=== PATIENT | female | born 1995 | race Caucasian/White ===

== ENCOUNTER 2019-01-12 14:58 | Inpatient (IN) | payer OTHER ==
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
[2019-01-12] MEDS ORDERED: IBUPROFEN 400 MG TABLET (FP) PO PRN (17:10)
[2019-01-12] MEDS ORDERED: BISMUTH SUBSALICYLATE 524 MG/30 ML UD PO PRN (17:10)
[2019-01-12] MEDS ORDERED: MENTHOL/PHENOL 1 EACH UD MM PRN (17:10)
[2019-01-12] MEDS ORDERED: NICOTINE POLACRILEX 2 MG GUM BUC PRN (17:10)
[2019-01-12] MEDS ORDERED: MAGNESIUM CITRATE 300 ML BOTTLE PO PRN (17:10)
[2019-01-12] MEDS ORDERED: ACETAMINOPHEN 325 MG TABLET (FP) PO PRN ×2 (17:10)
[2019-01-12] MEDS ORDERED: METHOCARBAMOL 500 MG TABLET PO PRN (17:10)
[2019-01-12] MEDS ORDERED: MAG HYDROX/AL HYDROX/SIMETH 30 ML UNIT-DOSE CUP PO PRN (17:10)
[2019-01-12] MEDS ORDERED: MAGNESIUM HYDROX 2400MG/30ML ORAL SUSPENSION 30 ML CUP PO PRN (17:10)
[2019-01-12] MEDS ORDERED: guaiFENesin 200 MG/10 ML 10 ML UNIT-DOSE CUPS PO PRN (17:17)
[2019-01-12] MEDS ORDERED: diazePAM 5 MG TABLET PO ONE (18:00)
[2019-01-12] MEDS: diazePAM 5 MG TABLET PO SCH (22:19)
[2019-01-12] MEDS: THIAMINE HCL 100 MG TABLET (FP) PO SCH (22:19)
[2019-01-12] MEDS: MELATONIN 5 MG TABLETS PO PRN (22:20)
[2019-01-13] MEDS ORDERED: METHADONE HCL 40 MG DISPERSABLE TABLET ONE (04:40)
[2019-01-13] MEDS ORDERED: METHADONE HCL 10 MG TABLET ONE (04:40)
[2019-01-13] MEDS ORDERED: METHADONE HCL 5 MG TABLET ONE (04:40)
[2019-01-13] MEDS: diazePAM 5 MG TABLET PO SCH ×3 (05:21→22:04)
[2019-01-13] MEDS: METHADONE 80 MG, METHADONE 30 MG, METHADONE 5 MG PO SCH (06:56)
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
[2019-01-13] MEDS: diazePAM 5 MG TABLET PO PRN ×2 (09:35→17:27)
[2019-01-13] MEDS: NICOTINE 21 MG/24 HOURS TOPICAL PATCH TD SCH (09:35)
[2019-01-13] MEDS: PRENATAL VITAMINS W/ FOLIC ACID TABLET (FP) PO SCH (09:35)
[2019-01-13] MEDS ORDERED: METHADONE HCL 40 MG DISPERSABLE TABLET PO SCH (10:00)
[2019-01-13 10:05] LABS: HEMATOCRIT 36.4 % (32.4-45.2); HEMOGLOBIN 11.9 GM/dL (10.7-15.3); MCHC 32.7 g/dl (32.0-36.0); MEAN CELL VOLUME 85.5 fl (80-96); MEAN PLT VOLUME 9.7 fl (7.5-11.1); PLATELET COUNT 270 K/MM3 (134-434); RBC 4.25 M/mm3 (3.60-5.2); RDW 15.9 % (11.6-15.6); WHITE BLOOD COUNT 8.9 K/mm3 (4.0-10.0)
[2019-01-13 10:26] LABS: ALBUMIN 3.2 g/dl (3.4-5.0); ALK PHOS 59 U/L (45-117); ANION GAP 4 MMOL/L (8-16); BILIRUBIN,TOTAL 0.2 mg/dL (0.2-1); BLOOD UREA NITROGEN 12 mg/dL (7-18); CALCIUM 8.7 mg/dL (8.5-10.1); CHLORIDE 106 mmol/L (98-107); CO2 30 mmol/L (21-32); CREATININE 0.8 mg/dL (0.55-1.3); GLUCOSE,RANDOM 96 mg/dL (74-106); POTASSIUM 4.1 mmol/L (3.5-5.1); SGOT/AST 12 U/L (15-37); SGPT/ALT 19 U/L (13-61); SODIUM 140 mmol/L (136-145); TOT PROT 6.5 g/dl (6.4-8.2)
[2019-01-13] MEDS: FLUoxetine HCL 20 MG CAPSULE (FP) PO SCH (11:29)
[2019-01-13] MEDS: busPIRone HCL 10 MG TABLET (FP) PO SCH ×2 (11:29→22:04)
[2019-01-13 11:34] LABS: PH,URINE 7.5 (5.0-8.0); URINE APPEARANCE CLEAR; URINE BILIRUBIN NEGATIVE (NEGATIVE); URINE COLOR YELLOW; URINE GLUCOSE (UA) NEGATIVE (NEGATIVE); URINE KETONE NEGATIVE (NEGATIVE); URINE LEUK ESTERASE NEGATIVE (NEGATIVE); URINE NITRITE NEGATIVE (NEGATIVE); URINE PROTEIN NEGATIVE (NEGATIVE); URINE UROBILINOGEN 0.2 mg/dL (0.2-1.0)
--- NOTE | 2019-01-13 14:46 | EKG ---
Test Reason : Blood Pressure : / mmHG Vent. Rate : 054 BPM Atrial Rate : 054 BPM P-R Int : 172 ms QRS Dur : 094 ms QT Int : 466 ms P-R-T Axes : 039 033 037 degrees QTc Int : 441 ms SINUS BRADYCARDIA WITH SINUS ARRHYTHMIA INCOMPLETE RIGHT BUNDLE BRANCH BLOCK BORDERLINE ECG NO PREVIOUS ECGS AVAILABLE Confirmed by Jan Ornelas ([id number]) on 01/13/2019 2:46:03 PM Referred By: SHINE BARAJAS Confirmed By:Jan Ornelas
--- NOTE | 2019-01-13 15:57 | PN ---
S CIWA - CIWA Score Nausea/Vomitin-No Nausea/No Vomiting Muscle Tremors: 3 Anxiety: 3 Agitation: 0-Normal Activity Paroxysmal Sweats: 3 Orientation: 0-Oriented Tacttile Disturbances: 2-Mild Itch/Numbness/Burn Auditory Disturbances: 2-Mild Harshness/Frighten Visual Disturbances: 0-None Headache: 3-Moderate CIWA-Ar Total Score: 16 BHS Progress Note (SOAP) Subjective: Interrupted Sleep, Sweating, Tremors, Constipation, Fatigue, Body Aches, H/A. Objective: PATIENT A & O X 3, OBSERVED AMBULATING ON UNIT. IN NO ACUTE DISTRESS. 01/13/19 15:57 Vital Signs Temperature 97.5 F L 01/13/19 13:35 Pulse Rate 62 01/13/19 13:35 Respiratory Rate 18 01/13/19 13:35 Blood Pressure 122/73 01/13/19 13:35 O2 Sat by Pulse Oximetry (%) Laboratory Tests 01/12/19 01/13/19 01/13/19 18:40 07:00 07:00 WBC 8.9 RBC 4.25 Hgb 11.9 Hct 36.4 MCV 85.5 MCH 28.0 MCHC 32.7 RDW 15.9 H Plt Count 270 MPV 9.7 Sodium 140 Potassium 4.1 Chloride 106 Carbon Dioxide 30 Anion Gap 4 L BUN 12 Creatinine 0.8 Creat Clearance w eGFR 88.12 Random Glucose 96 Calcium 8.7 Total Bilirubin 0.2 AST 12 L ALT 19 Alkaline Phosphatase 59 Total Protein 6.5 Albumin 3.2 L Urine Color Yellow Urine Appearance Clear Urine pH 7.5 D Ur Specific [place] 1.006 L Urine Protein Negative Urine Glucose (UA) Negative Urine Ketones Negative Urine Blood Negative Urine Nitrite Negative Urine Bilirubin Negative Urine Urobilinogen 0.2 Ur Leukocyte Esterase Negative LABS NOTED. RPR RESULT PENDING. 01/13/19 15:58 Assessment: 01/13/19 15:57 WITHDRAWAL SYMPTOMS. Plan: CONTINUE DETOX. INCREASE DAILY PO FLUID INTAKE. PRN MOM FOR CONSTIPATION.
[2019-01-13] MEDS: THIAMINE HCL 100 MG TABLET (FP) PO SCH (22:04)
[2019-01-14] MEDS ORDERED: METHADONE HCL 10 MG TABLET ONE (04:55)
[2019-01-14] MEDS ORDERED: METHADONE HCL 40 MG DISPERSABLE TABLET ONE (04:55)
[2019-01-14] MEDS ORDERED: METHADONE HCL 5 MG TABLET ONE (04:56)
[2019-01-14] MEDS: METHADONE 80 MG, METHADONE 30 MG, METHADONE 5 MG PO SCH (07:53)
[2019-01-14] MEDS: diazePAM 5 MG TABLET PO PRN ×3 (07:54→17:42)
[2019-01-14] MEDS: busPIRone HCL 10 MG TABLET (FP) PO SCH ×2 (10:43→22:11)
[2019-01-14] MEDS: FLUoxetine HCL 20 MG CAPSULE (FP) PO SCH (10:43)
[2019-01-14] MEDS: PRENATAL VITAMINS W/ FOLIC ACID TABLET (FP) PO SCH (10:43)
[2019-01-14] MEDS: NICOTINE 21 MG/24 HOURS TOPICAL PATCH TD SCH (10:43)
[2019-01-14] MEDS: diazePAM 5 MG TABLET PO SCH ×2 (10:43→22:11)
--- NOTE | 2019-01-14 14:17 | PN ---
S CIWA - CIWA Score Nausea/Vomitin-Mild Nausea/No Vomiting Muscle Tremors: 1-None Visible, but [place] Anxiety: 1-Mildly Anxious Agitation: 1-Slight > Activity Paroxysmal Sweats: 1-Minimal Palms Moist Orientation: 0-Oriented Tacttile Disturbances: 0-None Auditory Disturbances: 0-None Visual Disturbances: 0-None Headache: 0-None Present CIWA-Ar Total Score: 5 BHS Progress Note (SOAP) Subjective: pt doing well, on benzo detox protocol O: Vital Signs - 24 hr 01/13/19 01/13/19 01/14/19 18:07 21:40 00:30 Temperature 98.2 F 98.5 F Pulse Rate 70 62 Respiratory 16 16 18 Rate Blood Pressure 117/71 128/76 01/14/19 01/14/19 01/14/19 03:30 06:16 06:30 Temperature 97.0 F L Pulse Rate 56 L Respiratory 18 18 18 Rate Blood Pressure 101/51 L 01/14/19 09:36 Temperature 97.8 F Pulse Rate 76 Respiratory 18 Rate Blood Pressure 117/85 a/p: Benzo detox protocol: d/c planned for tomorrow to rehab
[2019-01-14] MEDS: MELATONIN 5 MG TABLETS PO PRN (22:11)
[2019-01-14] MEDS: THIAMINE HCL 100 MG TABLET (FP) PO SCH (22:11)
[2019-01-15] MEDS ORDERED: METHADONE HCL 40 MG DISPERSABLE TABLET ONE (04:23)
[2019-01-15] MEDS ORDERED: METHADONE HCL 10 MG TABLET ONE (04:23)
[2019-01-15] MEDS ORDERED: METHADONE HCL 5 MG TABLET ONE (04:24)
[2019-01-15] MEDS ORDERED: diazePAM 5 MG TABLET PO SCH (06:00)
[2019-01-15] MEDS: METHADONE 80 MG, METHADONE 30 MG, METHADONE 5 MG PO SCH (07:55)
[2019-01-15 09:18] VITALS: BP 110/73; PULSE 77; TEMP 98.8
--- NOTE | 2019-01-15 20:20 | DS ---
[facility] Detox Discharge Summary Admission Date: 01/12/19 Discharge Date: 01/15/19 - History Present History: Cocaine Dependence, Opioid Dependence, Sedative Dependence, MMTP Additional Comments: PATIENT GOING TO [facility] ([place], [place]) FOR AFTERCARE. PATIENT WAS DISCHARGED FROM DETOX UNIT IN STABLE MEDICAL CONDITION. Pertinent Past History: History of Seizures, Depression, M.M.T.P., Nicotine Dependence, History of Bradycardia, Bruise. - Physical Exam Results Vital Signs: Vital Signs Temperature 98.8 F 01/15/19 09:17 Pulse Rate 77 01/15/19 09:17 Respiratory Rate 18 01/15/19 09:17 Blood Pressure 110/73 01/15/19 09:17 O2 Sat by Pulse Oximetry (%) Pertinent Admission Physical Exam Findings: WITHDRAWAL SYMPTOMS. Laboratory Tests 01/12/19 01/13/19 01/13/19 18:40 07:00 07:00 WBC 8.9 RBC 4.25 Hgb 11.9 Hct 36.4 MCV 85.5 MCH 28.0 MCHC 32.7 RDW 15.9 H Plt Count 270 MPV 9.7 Sodium 140 Potassium 4.1 Chloride 106 Carbon Dioxide 30 Anion Gap 4 L BUN 12 Creatinine 0.8 Creat Clearance w eGFR 88.12 Random Glucose 96 Calcium 8.7 Total Bilirubin 0.2 AST 12 L ALT 19 Alkaline Phosphatase 59 Total Protein 6.5 Albumin 3.2 L Urine Color Yellow Urine Appearance Clear Urine pH 7.5 D Ur Specific [place] 1.006 L Urine Protein Negative Urine Glucose (UA) Negative Urine Ketones Negative Urine Blood Negative Urine Nitrite Negative Urine Bilirubin Negative Urine Urobilinogen 0.2 Ur Leukocyte Esterase Negative RPR Titer 01/13/19 07:00 WBC RBC Hgb Hct MCV MCH MCHC RDW Plt Count MPV Sodium Potassium Chloride Carbon Dioxide Anion Gap BUN Creatinine Creat Clearance w eGFR Random Glucose Calcium Total Bilirubin AST ALT Alkaline Phosphatase Total Protein Albumin Urine Color Urine Appearance Urine pH Ur Specific [place] Urine Protein Urine Glucose (UA) Urine Ketones Urine Blood Urine Nitrite Urine Bilirubin Urine Urobilinogen Ur Leukocyte Esterase RPR Titer Nonreactive LABS NOTED. - Treatment Hospital Course: Detox Protocol Followed, Detoxed Safely, Responded well, Discharged Condition Good, Rehab Referral Accepted Patient has Accepted a Rehab Referral to: [facility] ([place], [place]). - Medication Discharge Medications: Ambulatory Orders Methadone [Dolophine -] 115 mg PO DAILY 01/12/19 Buspirone HCl [Buspar -] 10 mg PO DAILY 01/13/19 Fluoxetine HCl [Prozac] 20 mg PO DAILY 01/13/19 - Diagnosis (1) Sedative, hypnotic or anxiolytic dependence with withdrawal, uncomplicated Status: Acute (2) Bradycardia Status: Chronic (3) Cocaine dependence, uncomplicated Status: Chronic (4) Bruise Status: Chronic (5) Methadone maintenance therapy patient Status: Chronic (6) Nicotine dependence Status: Chronic Qualifiers: Nicotine product type: cigarettes Substance use status: uncomplicated Qualified Code(s): F17.210 - Nicotine dependence, cigarettes, uncomplicated (7) Obesity (BMI 30-39.9) Status: Chronic (8) Substance-induced anxiety disorder Status: Acute (9) Anxiety Status: Chronic - AMA Did Patient Leave Against Medical Advice: No
== END 2019-01-15 10:00 | disposition home or self-care (01) | DRG 773 ==
LOC: YASAS 14:58 → Y3N 17:41
PROVIDERS: ADMIT Surgery; ATTEND Surgery
PROC: HZ2ZZZZ Detoxification Services for Substance Abuse Treatment (ICD-10-PCS; principal; 2019-01-12)
DX: F13.230 Sedative, hypnotic or anxiolytic dependence with withdrawal, uncomplicated (principal); F11.20 Opioid dependence, uncomplicated; F14.20 Cocaine dependence, uncomplicated; F17.210 Nicotine dependence, cigarettes, uncomplicated; F19.280 Other psychoactive substance dependence with psychoactive substance-induced anxiety disorder; F41.9 Anxiety disorder, unspecified; R00.1 Bradycardia, unspecified; E66.9 Obesity, unspecified; Z68.37 Body mass index [BMI] 37.0-37.9, adult; Z86.69 Personal history of other diseases of the nervous system and sense organs; Z91.5 Personal history of self-harm
CPT/HCPCS: 36415; 80053; 81003; 85027; 86593; 90853; 93005; 93010

== ENCOUNTER 2019-05-19 09:36 | Inpatient (IN) | payer OTHER ==
[2019-05-19 10:39] VITALS: BMI 38.9
--- NOTE | 2019-05-19 12:27 | HP ---
COWS - Scale Resting Pulse: 2= [place] 101-120 Sweatin= Chills/Flushing Restless Observation: 1= Difficult to Sit Still Pupil Size: 1= Pupils >than Normal Bone or Joint Aches: 2= Severe Diffuse Aches Runny Nose/ Eye Tearin= Runny Nose/Eyes GI Upset > 30mins: 1= Stomach Cramp Tremor Observation: 1= Tremor [place], Not Seen Yawning Observation: 1= 1-2x During Session Anxiety or Irritability: 2=Irritable/Anxious Goose Flesh Skin: 0=Smooth Skin COWS Score: 14 CIWA Score Nausea/Vomitin-Mild Nausea/No Vomiting Muscle Tremors: 3 Anxiety: 3 Agitation: 3 Paroxysmal Sweats: No Perspiration Orientation: 0-Oriented Tacttile Disturbances: 0-None Auditory Disturbances: 0-None Visual Disturbances: 0-None Headache: 2-Mild CIWA-Ar Total Score: 12 - Admission Criteria OASAS Guidelines: Admission for Medically Managed Detox: Requires at least one of the followin. CIWA greater than 12 2. Seizures within the past 24 hours 3. Delirium tremens within the past 24 hours 4. Hallucinations within the past 24 hours 5. Acute intervention needed for co occurring medical disorder 6. Acute intervention needed for co occurring psychiatric disorder 7. Severe withdrawal that cannot be handled at a lower level of care (continued vomiting, continued diarrhea, abnormal vital signs) requiring intravenous medication and/or fluids 8. Admission ROS [facility] Chief Complaint: here for heroin and benzo detox Allergies/Adverse Reactions: Allergies Allergy/AdvReac Type Severity Reaction Status Date / Time No Known Allergies Allergy Verified 05/19/19 10:35 History of Present Illness: 23 yo with anxiety, on no meds, here after using heroin and xanax illicitly. Pt is in our methadone program- but missed 7days, last methadone dose on 05/11/19, on 70mg, pt states that she wants to taper off methadone because she does not like to go to a methadone program every day. She would consider restarting Suboxone after she is tapered off methadone. Would like to go to custodial rehab. 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, is homeless - stays at different friend's houses Does not have a PCP, no medical problems, on no meds Heroin 9-10 bags/day, does not have a narcan kit, no h/o OD Xanax- 6mg/day, getting this illicitly cocaine- occasional MJ: occasional DUR- no recent controlled substances - Ebola screening Have you traveled outside of the country in the last 21 days: No Have you had contact with anyone from an Ebola affected area: No Do you have a fever: No Patient History - Patient Medical History Hx Anemia: No Hx Asthma: No Hx Chronic Obstructive Pulmonary Disease (COPD): No Hx Cancer: No Hx Cardiac Disorders: No Hx Congestive Heart Failure: No Hx Hypertension: No Hx Hypercholesterolemia: No Hx Pacemaker: No HX Cerebrovascular Accident: No Hx Seizures: Yes (withdrawal of xanax) Hx Dementia: No Hx Diabetes: No Hx Gastrointestinal Disorders: No Hx Liver Disease: No Hx Genitourinary Disorders: No Hx Sexually Transmitted Disorders: No Hx Renal Disease (ESRD): No Hx Thyroid Disease: No Hx Human Immunodeficiency Virus (HIV): No (last 11/27) Hx Hepatitis C: No Hx Depression: Yes Hx Suicide Attempt: Yes Hx Bipolar Disorder: No Hx Schizophrenia: No - Patient Surgical History Past Surgical History: Yes Hx Neurologic Surgery: No Hx Cataract Extraction: No Hx Cardiac Surgery: No Hx Lung Surgery: No Hx Breast Surgery: No Hx Breast Biopsy: No Hx Abdominal Surgery: No Hx Appendectomy: No Hx Cholecystectomy: No Hx Genitourinary Surgery: No Hx Section: No Hx Orthopedic Surgery: No Other Surgical History: TONSILLECOTMY DURING CHILDHOOD Anesthesia Reaction: No - PPD History Date: 06/16/15 Results: 0mm - Reproductive History Last Menstrual Period: 11/23/16 - Smoking Cessation Smoking history: Current every day smoker Have you smoked in the past 12 months: No Aproximately how many cigarettes per day: 10 Cigars Per Day: 0 Hx Chewing Tobacco Use: No Initiated information on smoking cessation: Yes 'Breaking Loose' booklet given: 05/19/19 - Substances abused Alprazolam (Xanax) Substance route: Oral Frequency: Daily Amount used: 4 mg Age of first use: 13 Date of last use: 05/18/19 Cocaine Substance route: Inhalation Frequency: 1-3 times last 30 days Amount used: 2 gm Age of first use: 20 Date of last use: 01/11/19 Heroin Substance route: Inhalation Frequency: Daily Amount used: 8BAGS Age of first use: 15 Date of last use: 05/18/19 Family Disease History - Family Disease History Family Disease History: Other: Mother (ETOH AND COCCAINE DEPENDENT) Admission Physical Exam [facility] - Vital Signs Vital Signs: Vital Signs - 24 hr 05/19/19 05/19/19 10:31 11:03 Temperature 99.2 F 99.2 F Pulse Rate 92 H 92 H Respiratory 18 18 Rate Blood Pressure 115/77 115/77 Cleared for Admission [facility] - Detox or Rehab [facility] Level of Care: Medically Managed Detox Regimen/Protocol: Methadone/Valium Breathalyzer - Breathalyzer Breathalyzer: 0 POC Urine test - Test device test lot number: [id number] Expiration date: 06/13/20 - Control test control: Yes Urine Drug Screen - Test Device Lot number: [id number] Expiration date: 02/10/21 - Control Is test valid?: Yes - Results Drug screen NEGATIVE: No Urine drug screen results: THC-Marijuana, FEN-Fentanyl, MOP-Opiates, OXY- Oxycodone, MTD-Methadone, BZO-Benzodiazepines Inpatient Rehab Admission - Rehab Decision to Admit Inpatient rehab admission?: No
[2019-05-19] MEDS ORDERED: METHOCARBAMOL 500 MG TABLET PO PRN (12:51)
[2019-05-19] MEDS ORDERED: IBUPROFEN 400 MG TABLET (FP) PO PRN (12:51)
[2019-05-19] MEDS ORDERED: cloNIDine HCL 0.1 MG TABLET PO PRN (12:51)
[2019-05-19] MEDS ORDERED: ONDANSETRON *ODT* 4 MG TABLET SL PRN (12:51)
[2019-05-19] MEDS ORDERED: MAGNESIUM CITRATE 300 ML BOTTLE PO PRN (12:51)
[2019-05-19] MEDS ORDERED: MAG HYDROX/AL HYDROX/SIMETH 30 ML UNIT-DOSE CUP PO PRN (12:51)
[2019-05-19] MEDS ORDERED: MAGNESIUM HYDROX 2400MG/30ML ORAL SUSPENSION 30 ML CUP PO PRN (12:51)
[2019-05-19] MEDS ORDERED: MENTHOL/PHENOL 1 EACH UD MM PRN (12:51)
[2019-05-19] MEDS ORDERED: NALOXONE HCL 0.4 MG/ML VIAL IM PRN (12:51)
[2019-05-19] MEDS ORDERED: BISMUTH SUBSALICYLATE 524 MG/30 ML UD PO PRN (12:51)
[2019-05-19] MEDS ORDERED: ACETAMINOPHEN 325 MG TABLET (FP) PO PRN ×2 (12:51)
[2019-05-19] MEDS ORDERED: diazePAM 5 MG TABLET PO ONE (14:30)
[2019-05-19] MEDS: diazePAM 5 MG TABLET PO SCH ×2 (14:35→22:10)
[2019-05-19] MEDS ORDERED: METHADONE HCL 10 MG TABLET (FOR DETOX USE ONLY) PO ONE (15:00)
[2019-05-19 15:43] LABS: HEMATOCRIT 38.1 % (32.4-45.2); HEMOGLOBIN 12.5 GM/dL (10.7-15.3); MCH 27.4 pg (25.7-33.7); MCHC 32.9 g/dl (32.0-36.0); MEAN CELL VOLUME 83.5 fl (80-96); MEAN PLT VOLUME 9.6 fl (7.5-11.1); PLATELET COUNT 300 K/MM3 (134-434); RBC 4.57 M/mm3 (3.60-5.2); RDW 15.6 % (11.6-15.6)
[2019-05-19 16:13] LABS: ALBUMIN 3.7 g/dl (3.4-5.0); BILIRUBIN,TOTAL 0.3 mg/dL (0.2-1); BLOOD UREA NITROGEN 10.7 mg/dL (7-18); CALCIUM 8.9 mg/dL (8.5-10.1); CREATININE 0.7 mg/dL (0.55-1.3); POTASSIUM 4.5 mmol/L (3.5-5.1); TOT PROT 7.1 g/dl (6.4-8.2)
[2019-05-19] MEDS: diazePAM 5 MG TABLET PO PRN (18:18)
[2019-05-19] MEDS: NICOTINE POLACRILEX 4 MG GUM BUC PRN (20:11)
[2019-05-19] MEDS: MELATONIN 5 MG TABLETS PO PRN (22:10)
[2019-05-19] MEDS: hydrOXYzine PAMOATE 25 MG CAPSULE (FP) PO PRN (22:10)
[2019-05-19] MEDS: THIAMINE HCL 100 MG TABLET (FP) PO SCH (22:10)
[2019-05-20] MEDS: diazePAM 5 MG TABLET PO SCH ×3 (06:24→22:11)
[2019-05-20] MEDS ORDERED: METHADONE HCL 10 MG TABLET (FOR DETOX USE ONLY) ONE (08:17)
[2019-05-20] MEDS ORDERED: METHADONE HCL 5 MG TABLET (FOR DETOX USE ONLY) ONE (08:17)
[2019-05-20] MEDS ORDERED: METHADONE (DETOX) 20 MG, METHADONE (DETOX) 5 MG PO ONE (10:00)
[2019-05-20] MEDS: NICOTINE 14 MG/24 HOURS TOPICAL PATCH TD SCH (10:25)
[2019-05-20] MEDS: PRENATAL VITAMINS W/ FOLIC ACID TABLET (FP) PO SCH (10:25)
[2019-05-20] MEDS: diazePAM 5 MG TABLET PO PRN ×2 (10:28→17:36)
[2019-05-20] MEDS: NICOTINE POLACRILEX 4 MG GUM BUC PRN ×3 (11:23→23:09)
--- NOTE | 2019-05-20 12:21 | PN ---
[facility] Progress Note Note: Today, pt states she would like to go back on MAT methadone. At intake pt had requested to be tapered off methadone to be able to start Suboxone. Pt had missed 7 days of methadone dosing at [facility] methadone program (and had been using heroin). As the pt is requesting reinstatement we will titrate her methadone dose to the last dose at the program- 70mg. [facility] MAT program made aware of this and pt can f /u with the program at discharge from inpt detox.
[2019-05-20] MEDS ORDERED: METHADONE HCL 5 MG TABLET PO ONE (12:25)
--- NOTE | 2019-05-20 14:05 | PN ---
[facility] CIWA - CIWA Score Nausea/Vomitin-Mild Nausea/No Vomiting Muscle Tremors: 3 Anxiety: 1-Mildly Anxious Agitation: 2 Paroxysmal Sweats: 1-Minimal Palms Moist Orientation: 0-Oriented Tacttile Disturbances: 0-None Auditory Disturbances: 0-None Visual Disturbances: 0-None Headache: 0-None Present CIWA-Ar Total Score: 8 S Progress Note (SOAP) Subjective: received methadone 40 mg po today feeling better continue methadone increasing to maintenance dose less tremor mild body ache Objective: 05/20/19 14:03 Vital Signs Temperature 97.1 F L 05/20/19 14:02 Pulse Rate 56 L 05/20/19 14:02 Respiratory Rate 18 05/20/19 14:02 Blood Pressure 119/78 05/20/19 14:02 O2 Sat by Pulse Oximetry (%) Laboratory Last Values WBC 10.0 K/mm3 (4.0-10.0) 05/19/19 13:30 RBC 4.57 M/mm3 (3.60-5.2) 05/19/19 13:30 Hgb 12.5 GM/dL (10.7-15.3) 05/19/19 13:30 Hct 38.1 % (32.4-45.2) 05/19/19 13:30 MCV 83.5 fl (80-96) 05/19/19 13:30 MCH 27.4 pg (25.7-33.7) 05/19/19 13:30 MCHC 32.9 g/dl (32.0-36.0) 05/19/19 13:30 RDW 15.6 % (11.6-15.6) 05/19/19 13:30 Plt Count 300 K/MM3 (134-434) 05/19/19 13:30 MPV 9.6 fl (7.5-11.1) 05/19/19 13:30 Sodium 139 mmol/L (136-145) 05/19/19 13:30 Potassium 4.5 mmol/L (3.5-5.1) 05/19/19 13:30 Chloride 105 mmol/L (98-107) 05/19/19 13:30 Carbon Dioxide 29 mmol/L (21-32) 05/19/19 13:30 Anion Gap 5 MMOL/L (8-16) L 05/19/19 13:30 BUN 10.7 mg/dL (7-18) 05/19/19 13:30 Creatinine 0.7 mg/dL (0.55-1.3) 05/19/19 13:30 Est GFR (CKD-EPI)AfAm 140.55 05/19/19 13:30 Est GFR (CKD-EPI)NonAf 121.27 05/19/19 13:30 Random Glucose 75 mg/dL (74-106) 05/19/19 13:30 Calcium 8.9 mg/dL (8.5-10.1) 05/19/19 13:30 Total Bilirubin 0.3 mg/dL (0.2-1) 05/19/19 13:30 AST 27 U/L (15-37) 05/19/19 13:30 ALT 32 U/L (13-61) 05/19/19 13:30 Alkaline Phosphatase 67 U/L (45-117) 05/19/19 13:30 Total Protein 7.1 g/dl (6.4-8.2) 05/19/19 13:30 Albumin 3.7 g/dl (3.4-5.0) 05/19/19 13:30 RPR Titer Nonreactive (NONREACTIVE) 05/19/19 13:30 lab noted Assessment: 05/20/19 14:03 alcohol withdrawal sx methadone maintenance dosing Plan: continue alcohol detox methadone 40 mg po
[2019-05-20] MEDS: THIAMINE HCL 100 MG TABLET (FP) PO SCH (22:11)
[2019-05-20] MEDS: MELATONIN 5 MG TABLETS PO PRN (22:12)
[2019-05-21] MEDS ORDERED: METHADONE HCL 40 MG DISPERSABLE TABLET ONE (05:47)
[2019-05-21] MEDS ORDERED: METHADONE HCL 10 MG TABLET ONE (05:47)
[2019-05-21] MEDS ORDERED: METHADONE HCL 10 MG TABLET PO ONE (06:00)
[2019-05-21] MEDS ORDERED: METHADONE 40 MG, METHADONE 10 MG PO ONE (06:00)
[2019-05-21] MEDS: diazePAM 5 MG TABLET PO SCH ×2 (06:29→17:00)
[2019-05-21] MEDS: NICOTINE POLACRILEX 4 MG GUM BUC PRN ×3 (09:18→22:10)
[2019-05-21] MEDS ORDERED: METHADONE HCL 10 MG TABLET (FOR DETOX USE ONLY) PO ONE (10:00)
[2019-05-21] MEDS: diazePAM 5 MG TABLET PO PRN ×2 (10:35→19:05)
[2019-05-21] MEDS: PRENATAL VITAMINS W/ FOLIC ACID TABLET (FP) PO SCH (10:35)
[2019-05-21] MEDS: NICOTINE 14 MG/24 HOURS TOPICAL PATCH TD SCH (10:35)
--- NOTE | 2019-05-21 15:36 | PN ---
[facility] CIWA - CIWA Score Nausea/Vomitin-No Nausea/No Vomiting Muscle Tremors: 3 Anxiety: 2 Agitation: 2 Paroxysmal Sweats: No Perspiration Orientation: 0-Oriented Tacttile Disturbances: 0-None Auditory Disturbances: 0-None Visual Disturbances: 0-None Headache: 0-None Present CIWA-Ar Total Score: 7 S Progress Note (SOAP) Subjective: 23 years old female admitted on 05/19/19 for alcohol withdrawal sx doing well with methadone maintenance process ambulating on hallway discuss medication assisted treatment program with staff less tremor mild body ache Objective: 05/21/19 15:42 Vital Signs Temperature 97.5 F L 05/21/19 13:39 Pulse Rate 64 05/21/19 13:39 Respiratory Rate 16 05/21/19 13:39 Blood Pressure 103/68 05/21/19 13:39 O2 Sat by Pulse Oximetry (%) Laboratory Last Values WBC 10.0 K/mm3 (4.0-10.0) 05/19/19 13:30 RBC 4.57 M/mm3 (3.60-5.2) 05/19/19 13:30 Hgb 12.5 GM/dL (10.7-15.3) 05/19/19 13:30 Hct 38.1 % (32.4-45.2) 05/19/19 13:30 MCV 83.5 fl (80-96) 05/19/19 13:30 MCH 27.4 pg (25.7-33.7) 05/19/19 13:30 MCHC 32.9 g/dl (32.0-36.0) 05/19/19 13:30 RDW 15.6 % (11.6-15.6) 05/19/19 13:30 Plt Count 300 K/MM3 (134-434) 05/19/19 13:30 MPV 9.6 fl (7.5-11.1) 05/19/19 13:30 Sodium 139 mmol/L (136-145) 05/19/19 13:30 Potassium 4.5 mmol/L (3.5-5.1) 05/19/19 13:30 Chloride 105 mmol/L (98-107) 05/19/19 13:30 Carbon Dioxide 29 mmol/L (21-32) 05/19/19 13:30 Anion Gap 5 MMOL/L (8-16) L 05/19/19 13:30 BUN 10.7 mg/dL (7-18) 05/19/19 13:30 Creatinine 0.7 mg/dL (0.55-1.3) 05/19/19 13:30 Est GFR (CKD-EPI)AfAm 140.55 05/19/19 13:30 Est GFR (CKD-EPI)NonAf 121.27 05/19/19 13:30 Random Glucose 75 mg/dL (74-106) 05/19/19 13:30 Calcium 8.9 mg/dL (8.5-10.1) 05/19/19 13:30 Total Bilirubin 0.3 mg/dL (0.2-1) 05/19/19 13:30 AST 27 U/L (15-37) 05/19/19 13:30 ALT 32 U/L (13-61) 05/19/19 13:30 Alkaline Phosphatase 67 U/L (45-117) 05/19/19 13:30 Total Protein 7.1 g/dl (6.4-8.2) 05/19/19 13:30 Albumin 3.7 g/dl (3.4-5.0) 05/19/19 13:30 RPR Titer Nonreactive (NONREACTIVE) 05/19/19 13:30 lab noted Assessment: 05/21/19 15:42 alcohol withdrawal sx Plan: continue alcohol detox
[2019-05-21] MEDS: THIAMINE HCL 100 MG TABLET (FP) PO SCH (22:10)
[2019-05-21] MEDS: MELATONIN 5 MG TABLETS PO PRN (22:10)
[2019-05-22] MEDS ORDERED: METHADONE HCL 40 MG DISPERSABLE TABLET ONE (04:48)
[2019-05-22] MEDS ORDERED: METHADONE HCL 10 MG TABLET ONE (04:48)
[2019-05-22] MEDS ORDERED: METHADONE 40 MG, METHADONE 20 MG PO ONE (06:00)
[2019-05-22] MEDS ORDERED: METHADONE HCL 10 MG TABLET PO ONE (06:00)
[2019-05-22] MEDS ORDERED: diazePAM 5 MG TABLET PO ONE ×2 (06:00→17:36)
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
[2019-05-22] MEDS: PRENATAL VITAMINS W/ FOLIC ACID TABLET (FP) PO SCH (09:31)
[2019-05-22] MEDS: hydrOXYzine PAMOATE 25 MG CAPSULE (FP) PO PRN ×2 (09:31→22:22)
[2019-05-22] MEDS: NICOTINE 14 MG/24 HOURS TOPICAL PATCH TD SCH (09:32)
[2019-05-22] MEDS: NICOTINE POLACRILEX 4 MG GUM BUC PRN (09:33)
[2019-05-22] MEDS ORDERED: METHADONE (DETOX) 10 MG, METHADONE (DETOX) 5 MG PO ONE (10:00)
--- NOTE | 2019-05-22 12:09 | PN ---
S CIWA - CIWA Score Nausea/Vomitin-Mild Nausea/No Vomiting Muscle Tremors: 3 Anxiety: 1-Mildly Anxious Agitation: 3 Paroxysmal Sweats: No Perspiration Orientation: 0-Oriented Tacttile Disturbances: 0-None Auditory Disturbances: 0-None Visual Disturbances: 0-None Headache: 0-None Present CIWA-Ar Total Score: 8 BHS COWS - Scale Resting Pulse: 1= MA 81-100 Sweatin= Chills/Flushing Restless Observation: 1= Difficult to Sit Still Pupil Size: 0= Normal to Room Light Bone or Joint Aches: 1= Mild Discomfort Runny Nose/ Eye Tearin= None GI Upset > 30mins: 1= Stomach Cramp Tremor Observation of Outstretched Hands: 1= Tremor [place], Not Seen Yawning Observation: 0= None Anxiety or Irritability: 1=Feels Anxious/Irritable Goose Flesh Skin: 0=Smooth Skin COWS Score: 7 S Progress Note (SOAP) Subjective: Patient is complaining of withdrawals still for alcohol and opioids. She feels very uncomfortable. Objective: 05/22/19 12:07 Opiate and Alcohol Withdrawals Vitals: 105/70 P:85/min R:16/min T:96.5 Laboratory 05/19/19 05/19/19 05/19/19 13:30 13:30 13:30 WBC 10.0 K/mm3 K/mm3 (4.0-10.0) RBC 4.57 M/mm3 M/mm3 (3.60-5.2) Hgb 12.5 GM/dL GM/dL (10.7-15.3) Hct 38.1 % % (32.4-45.2) MCV 83.5 fl fl (80-96) MCH 27.4 pg pg (25.7-33.7) MCHC 32.9 g/dl g/dl (32.0-36.0) RDW 15.6 % % (11.6-15.6) Plt Count 300 K/MM3 K/MM3 (134-434) MPV 9.6 fl fl (7.5-11.1) Sodium 139 mmol/L mmol/L (136-145) Potassium 4.5 mmol/L mmol/L (3.5-5.1) Chloride 105 mmol/L mmol/L (98-107) Carbon Dioxide 29 mmol/L mmol/L (21-32) Anion Gap 5 MMOL/L L MMOL/L (8-16) BUN 10.7 mg/dL mg/dL (7-18) Creatinine 0.7 mg/dL mg/dL (0.55-1.3) Est GFR (CKD-EPI)AfAm 140.55 Est GFR (CKD-EPI)NonAf 121.27 Random Glucose 75 mg/dL mg/dL (74-106) Calcium 8.9 mg/dL mg/dL (8.5-10.1) Total Bilirubin 0.3 mg/dL mg/dL (0.2-1) AST 27 U/L U/L (15-37) ALT 32 U/L U/L (13-61) Alkaline Phosphatase 67 U/L U/L (45-117) Total Protein 7.1 g/dl g/dl (6.4-8.2) Albumin 3.7 g/dl g/dl (3.4-5.0) RPR Titer Nonreactive (NONREACTIVE) 05/22/19 12:08 Assessment: 05/22/19 12:10 Alcohol and Opiate Withdrawal Plan: Alcohol and Opiate Withdrawals: Continue Ativan Protocol. Patient advised to be patient and that she will get her medication so amelliorate her withdrawal symptoms. She is sill on first full day of protocol. Encourage PO Fluids intake. Dr. Cassidy
[2019-05-22] MEDS: diazePAM 5 MG TABLET PO PRN (12:36)
--- NOTE | 2019-05-22 17:48 | PN ---
S Progress Note Note: Pt states she is having severe anxiety and is in withdrawal from benzo- rec'd valium 5mg this afternoon as end of taper. Will give valium 5mg stat now. Pt will get methadone 70mg tomorrow. Pt can go to methadone program for Saturday dose if pt is discharged tomorrow
[2019-05-22] MEDS ORDERED: MELATONIN 5 MG TABLETS PO PRN (22:00)
[2019-05-22] MEDS: THIAMINE HCL 100 MG TABLET (FP) PO SCH (22:23)
[2019-05-23] MEDS ORDERED: METHADONE HCL 10 MG TABLET ONE (04:43)
[2019-05-23] MEDS ORDERED: METHADONE HCL 40 MG DISPERSABLE TABLET ONE (04:43)
[2019-05-23] MEDS ORDERED: METHADONE 40 MG, METHADONE 30 MG PO ONE (06:00)
[2019-05-23] MEDS ORDERED: METHADONE HCL 10 MG TABLET PO ONE (06:00)
[2019-05-23 06:50] VITALS: PULSE 65; TEMP 96.9
[2019-05-23 07:56] VITALS: BP 113/80
[2019-05-23] MEDS ORDERED: METHADONE HCL 10 MG TABLET (FOR DETOX USE ONLY) PO ONE (10:00)
--- NOTE | 2019-05-23 13:42 | DS ---
[facility] Detox Discharge Summary Admission Date: 05/19/19 Discharge Date: 05/23/19 - History Present History: Cocaine Dependence, Opioid Dependence, Sedative Dependence Additional Comments: Pt is medically cleared and is discharged today. Pt completed her detox protocol. Pt is encouraged to follow-up with a CD outpatient program and also to follow-up with a pmd. Pt verbalized understanding. Pt is instructed to go to the methadone program 05/24/19 for her methadone as discussed with the previous provider. Pt is alert and oriented x3 and in no acute respiratory distress. Pertinent Past History: h/o heroin, benzo, and cocaine use disorder. - Physical Exam Results Vital Signs: Vital Signs Temperature 96.9 F L 05/23/19 06:49 Pulse Rate 65 05/23/19 06:49 Respiratory Rate 18 05/23/19 06:49 Blood Pressure 113/80 05/23/19 07:55 O2 Sat by Pulse Oximetry (%) Vital Signs 05/23/19 05/23/19 06:49 07:55 Temperature 96.9 F L Pulse Rate 65 Respiratory 18 Rate Blood Pressure 88/59 L 113/80 Lab Results WBC 10.0 K/mm3 (4.0-10.0) 05/19/19 13:30 RBC 4.57 M/mm3 (3.60-5.2) 05/19/19 13:30 Hgb 12.5 GM/dL (10.7-15.3) 05/19/19 13:30 Hct 38.1 % (32.4-45.2) 05/19/19 13:30 MCV 83.5 fl (80-96) 05/19/19 13:30 MCHC 32.9 g/dl (32.0-36.0) 05/19/19 13:30 RDW 15.6 % (11.6-15.6) 05/19/19 13:30 Plt Count 300 K/MM3 (134-434) 05/19/19 13:30 Sodium 139 mmol/L (136-145) 05/19/19 13:30 Potassium 4.5 mmol/L (3.5-5.1) 05/19/19 13:30 Chloride 105 mmol/L (98-107) 05/19/19 13:30 Carbon Dioxide 29 mmol/L (21-32) 05/19/19 13:30 Anion Gap 5 MMOL/L (8-16) L 05/19/19 13:30 BUN 10.7 mg/dL (7-18) 05/19/19 13:30 Creatinine 0.7 mg/dL (0.55-1.3) 05/19/19 13:30 Random Glucose 75 mg/dL (74-106) 05/19/19 13:30 Calcium 8.9 mg/dL (8.5-10.1) 05/19/19 13:30 Labs noted. Pertinent Admission Physical Exam Findings: withdrawal symptoms. - Treatment Hospital Course: Detox Protocol Followed, Detoxed Safely, Responded well, Discharged Condition Good - Medication Discharge Medications: Ambulatory Orders Methadone [Dolophine -] 40 mg PO DAILY 01/12/19 - Diagnosis (1) Alcohol dependence Status: Acute (2) BENZODIAZEPINES WITHDRAWAL Status: Acute (3) Cannabis abuse, daily use Status: Acute (4) Opiate addiction Status: Acute (5) S/P tonsillectomy Status: Acute - AMA Did Patient Leave Against Medical Advice: No
[2019-05-24] MEDS ORDERED: METHADONE HCL 5 MG TABLET (FOR DETOX USE ONLY) PO ONE (06:00)
== END 2019-05-23 09:58 | disposition home or self-care (01) | DRG 773 ==
LOC: YASAS 09:36 → Y3N 14:04
PROVIDERS: ADMIT Surgery; ATTEND Surgery
PROC: HZ2ZZZZ Detoxification Services for Substance Abuse Treatment (ICD-10-PCS; principal; 2019-05-19)
DX: F11.23 Opioid dependence with withdrawal (principal); F10.230 Alcohol dependence with withdrawal, uncomplicated; F13.230 Sedative, hypnotic or anxiolytic dependence with withdrawal, uncomplicated; F12.10 Cannabis abuse, uncomplicated; F17.210 Nicotine dependence, cigarettes, uncomplicated; F19.280 Other psychoactive substance dependence with psychoactive substance-induced anxiety disorder; F19.282 Other psychoactive substance dependence with psychoactive substance-induced sleep disorder; Z86.69 Personal history of other diseases of the nervous system and sense organs
CPT/HCPCS: 36415; 80053; 81025; 85027; 86593

== ENCOUNTER 2019-08-07 10:10 | Inpatient (IN) | payer OTHER ==
[2019-08-07 10:48] VITALS: BMI 39.3
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
[2019-08-07] MEDS ORDERED: hydrOXYzine PAMOATE 25 MG CAPSULE (FP) PO PRN (14:02)
[2019-08-07] MEDS ORDERED: BISMUTH SUBSALICYLATE 262 MG/15 ML BTL PO PRN (14:02)
[2019-08-07] MEDS ORDERED: METHOCARBAMOL 500 MG TABLET PO PRN (14:02)
[2019-08-07] MEDS ORDERED: IBUPROFEN 400 MG TABLET (FP) PO PRN (14:02)
[2019-08-07] MEDS ORDERED: MAGNESIUM HYDROX 2400MG/30ML ORAL SUSPENSION 30 ML CUP PO PRN (14:02)
[2019-08-07] MEDS ORDERED: MAG HYDROX/AL HYDROX/SIMETH 30 ML UNIT-DOSE CUP PO PRN (14:02)
[2019-08-07] MEDS ORDERED: ACETAMINOPHEN 325 MG TABLET (FP) PO PRN (14:02)
[2019-08-07] MEDS ORDERED: MAGNESIUM CITRATE 300 ML BOTTLE PO PRN (14:02)
[2019-08-07] MEDS ORDERED: MENTHOL/PHENOL 1 EACH UD MM PRN (14:02)
[2019-08-07] MEDS ORDERED: chlordiazePOXIDE HCL 25 MG CAPSULE PO PRN (14:02)
[2019-08-07] MEDS ORDERED: chlordiazePOXIDE HCL 25 MG CAPSULE PO ONE (15:30)
[2019-08-07 17:03] LABS: HEMATOCRIT 37.4 % (32.4-45.2); HEMOGLOBIN 12.1 GM/dL (10.7-15.3); MCH 27.1 pg (25.7-33.7); MCHC 32.3 g/dl (32.0-36.0); MEAN CELL VOLUME 83.8 fl (80-96); MEAN PLT VOLUME 9.2 fl (7.5-11.1); PLATELET COUNT 330 K/MM3 (134-434); RBC 4.47 M/mm3 (3.60-5.2); RDW 15.3 % (11.6-15.6); WHITE BLOOD COUNT 10.3 K/mm3 (4.0-10.0)
[2019-08-07 17:13] LABS: ALBUMIN 3.8 g/dl (3.4-5.0); BILIRUBIN,TOTAL 0.3 mg/dL (0.2-1); BLOOD UREA NITROGEN 10.4 mg/dL (7-18); CALCIUM 8.4 mg/dL (8.5-10.1); CREATININE 0.9 mg/dL (0.55-1.3); POTASSIUM 3.9 mmol/L (3.5-5.1); TOT PROT 7.3 g/dl (6.4-8.2)
[2019-08-07] MEDS: chlordiazePOXIDE HCL 25 MG CAPSULE PO SCH ×2 (17:34→22:21)
[2019-08-07] MEDS: ACETAMINOPHEN 325 MG TABLET (FP) PO PRN (17:35)
[2019-08-07] MEDS: MELATONIN 5 MG TABLETS PO PRN (22:21)
[2019-08-07] MEDS: THIAMINE HCL 100 MG TABLET (FP) PO SCH (22:21)
[2019-08-08] MEDS: METHADONE HCL 40 MG DISPERSABLE TABLET PO SCH (05:47)
[2019-08-08] MEDS: chlordiazePOXIDE HCL 25 MG CAPSULE PO SCH ×4 (05:48→22:25)
[2019-08-08] MEDS: PRENATAL VITAMINS W/ FOLIC ACID TABLET (FP) PO SCH (10:31)
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
--- NOTE | 2019-08-08 16:25 | PN ---
S CIWA - CIWA Score Nausea/Vomitin-No Nausea/No Vomiting Muscle Tremors: 3 Anxiety: 3 Agitation: 1-Slight > Activity Paroxysmal Sweats: No Perspiration Orientation: 0-Oriented Tacttile Disturbances: 0-None Auditory Disturbances: 0-None Visual Disturbances: 2-Mild Sensitivity Headache: 0-None Present CIWA-Ar Total Score: 9 BHS Progress Note (SOAP) Subjective: Anxious, Tremors, Fatigue. Objective: PATIENT A & O X 3, OBSERVED AMBULATING ON DETOX UNIT UNASSISTED. IN NO ACUTE DISTRESS. 08/08/19 16:26 Vital Signs Temperature 98.1 F 08/08/19 09:40 Pulse Rate 87 08/08/19 09:40 Respiratory Rate 16 08/08/19 09:40 Blood Pressure 107/65 08/08/19 09:40 O2 Sat by Pulse Oximetry (%) Laboratory Tests 08/07/19 08/07/19 08/07/19 14:50 14:50 14:50 WBC 10.3 H RBC 4.47 Hgb 12.1 Hct 37.4 MCV 83.8 MCH 27.1 MCHC 32.3 RDW 15.3 Plt Count 330 MPV 9.2 Sodium 140 Potassium 3.9 Chloride 106 Carbon Dioxide 26 Anion Gap 8 BUN 10.4 Creatinine 0.9 Est GFR (CKD-EPI)AfAm 103.00 Est GFR (CKD-EPI)NonAf 88.87 Random Glucose 89 Calcium 8.4 L Total Bilirubin 0.3 AST 33 ALT 26 Alkaline Phosphatase 71 Total Protein 7.3 Albumin 3.8 RPR Titer Nonreactive LABS NOTED. Assessment: 08/08/19 16:26 WITHDRAWAL SYMPTOMS. Plan: CONTINUE DETOX. INCREASE DAILY PO WATER INTAKE.
[2019-08-08] MEDS: THIAMINE HCL 100 MG TABLET (FP) PO SCH (22:25)
[2019-08-08] MEDS: MELATONIN 5 MG TABLETS PO PRN (22:26)
[2019-08-09] MEDS: METHADONE HCL 40 MG DISPERSABLE TABLET PO SCH (05:54)
[2019-08-09] MEDS: chlordiazePOXIDE HCL 25 MG CAPSULE PO SCH ×2 (05:55→10:52)
[2019-08-09] MEDS: PRENATAL VITAMINS W/ FOLIC ACID TABLET (FP) PO SCH (10:52)
[2019-08-09] MEDS: ACETAMINOPHEN 325 MG TABLET (FP) PO PRN (10:53)
[2019-08-09 13:08] VITALS: BP 119/76; PULSE 60; TEMP 97.5
--- NOTE | 2019-08-09 14:05 | DS ---
[facility] Detox Discharge Summary Admission Date: 08/07/19 Discharge Date: 08/09/19 - History Present History: Alcohol Dependence Additional Comments: 24 years old female admitted on 08/07/19 for alcohol withdrawal sx management treated wtih librium detox regimen patient tolerate well patient insists to leave the detox unit case discuss with the nurse and the counselor against medical advice is the best discharge status patient is alert oriented x 3 respiratory clear lung bilaterally on auscultation skin warm dry abdomen obese soft round no rebound tenderness - Physical Exam Results Vital Signs: Vital Signs Temperature 97.5 F L 08/09/19 13:07 Pulse Rate 60 08/09/19 13:07 Respiratory Rate 18 08/09/19 13:07 Blood Pressure 119/76 08/09/19 13:07 O2 Sat by Pulse Oximetry (%) Pertinent Admission Physical Exam Findings: alcohol withdrawal sx Laboratory Last Values WBC 10.3 K/mm3 (4.0-10.0) H 08/07/19 14:50 RBC 4.47 M/mm3 (3.60-5.2) 08/07/19 14:50 Hgb 12.1 GM/dL (10.7-15.3) 08/07/19 14:50 Hct 37.4 % (32.4-45.2) 08/07/19 14:50 MCV 83.8 fl (80-96) 08/07/19 14:50 MCH 27.1 pg (25.7-33.7) 08/07/19 14:50 MCHC 32.3 g/dl (32.0-36.0) 08/07/19 14:50 RDW 15.3 % (11.6-15.6) 08/07/19 14:50 Plt Count 330 K/MM3 (134-434) 08/07/19 14:50 MPV 9.2 fl (7.5-11.1) 08/07/19 14:50 Sodium 140 mmol/L (136-145) 08/07/19 14:50 Potassium 3.9 mmol/L (3.5-5.1) 08/07/19 14:50 Chloride 106 mmol/L (98-107) 08/07/19 14:50 Carbon Dioxide 26 mmol/L (21-32) 08/07/19 14:50 Anion Gap 8 MMOL/L (8-16) 08/07/19 14:50 BUN 10.4 mg/dL (7-18) 08/07/19 14:50 Creatinine 0.9 mg/dL (0.55-1.3) 08/07/19 14:50 Est GFR (CKD-EPI)AfAm 103.00 08/07/19 14:50 Est GFR (CKD-EPI)NonAf 88.87 08/07/19 14:50 Random Glucose 89 mg/dL (74-106) 08/07/19 14:50 Calcium 8.4 mg/dL (8.5-10.1) L 08/07/19 14:50 Total Bilirubin 0.3 mg/dL (0.2-1) 08/07/19 14:50 AST 33 U/L (15-37) 08/07/19 14:50 ALT 26 U/L (13-61) 08/07/19 14:50 Alkaline Phosphatase 71 U/L (45-117) 08/07/19 14:50 Total Protein 7.3 g/dl (6.4-8.2) 08/07/19 14:50 Albumin 3.8 g/dl (3.4-5.0) 08/07/19 14:50 RPR Titer Nonreactive (NONREACTIVE) 08/07/19 14:50 lab noted - Treatment Hospital Course: Detox Protocol Followed, Responded well Patient has Accepted a Rehab Referral to: methadone maintenance program - Medication Discharge Medications: Ambulatory Orders Methadone [Dolophine -] 80 mg PO DAILY 01/12/19 - Diagnosis (1) Nicotine dependence Current Visit: Yes Status: Acute Qualifiers: Nicotine product type: cigarettes Substance use status: in withdrawal Qualified Code(s): F17.213 - Nicotine dependence, cigarettes, with withdrawal (2) Substance induced mood disorder Current Visit: Yes Status: Suspected (3) Alcohol dependence Current Visit: Yes Status: Acute Qualifiers: Substance use status: uncomplicated Qualified Code(s): F10.20 - Alcohol dependence, uncomplicated (4) Methadone maintenance therapy patient Current Visit: Yes Status: Chronic (5) Obesity (BMI 30-39.9) Current Visit: Yes Status: Chronic - AMA Did Patient Leave Against Medical Advice: Yes CIWA Score - CIWA Score Nausea/Vomitin-No Nausea/No Vomiting Muscle Tremors: 1-None Visible, but [place] Anxiety: 2 Agitation: 0-Normal Activity Paroxysmal Sweats: No Perspiration Orientation: 0-Oriented Tacttile Disturbances: 0-None Auditory Disturbances: 0-None Visual Disturbances: 1-Very Mild Sensitivity Headache: 0-None Present CIWA-Ar Total Score: 4
[2019-08-10] MEDS ORDERED: chlordiazePOXIDE HCL 10 MG CAPSULE PO PRN
[2019-08-10] MEDS ORDERED: chlordiazePOXIDE HCL 10 MG CAPSULE PO SCH (05:00)
[2019-08-11] MEDS ORDERED: chlordiazePOXIDE HCL 10 MG CAPSULE PO SCH (05:00)
[2019-08-12] MEDS ORDERED: chlordiazePOXIDE HCL 10 MG CAPSULE PO ONE (05:00)
== END 2019-08-09 13:54 | disposition left against medical advice (07) | DRG 770 ==
LOC: YASAS 10:10 → Y3N 14:46
PROVIDERS: ADMIT Allergy & Immunology; ATTEND Allergy & Immunology
PROC: HZ2ZZZZ Detoxification Services for Substance Abuse Treatment (ICD-10-PCS; principal; 2019-08-07)
DX: F10.230 Alcohol dependence with withdrawal, uncomplicated (principal); F11.20 Opioid dependence, uncomplicated; F13.230 Sedative, hypnotic or anxiolytic dependence with withdrawal, uncomplicated; F14.20 Cocaine dependence, uncomplicated; F17.213 Nicotine dependence, cigarettes, with withdrawal; F19.24 Other psychoactive substance dependence with psychoactive substance-induced mood disorder; F31.9 Bipolar disorder, unspecified; G47.00 Insomnia, unspecified; E66.9 Obesity, unspecified; Z68.39 Body mass index [BMI] 39.0-39.9, adult; Z86.69 Personal history of other diseases of the nervous system and sense organs; Z91.19 Patient's noncompliance with other medical treatment and regimen
CPT/HCPCS: 36415; 80053; 85027; 86593

== ENCOUNTER 2019-11-02 12:53 | Inpatient (IN) | payer OTHER ==
[2019-11-02 13:25] VITALS: BMI 37.9
[2019-11-02] MEDS ORDERED: MAGNESIUM CITRATE 300 ML BOTTLE PO PRN (15:36)
[2019-11-02] MEDS ORDERED: MENTHOL/PHENOL 1 EACH UD MM PRN (15:36)
[2019-11-02] MEDS ORDERED: IBUPROFEN 400 MG TABLET (FP) PO PRN (15:36)
[2019-11-02] MEDS ORDERED: ACETAMINOPHEN 325 MG TABLET (FP) PO PRN ×2 (15:36)
[2019-11-02] MEDS ORDERED: BISMUTH SUBSALICYLATE 262 MG/15 ML BTL PO PRN (15:36)
[2019-11-02] MEDS ORDERED: MELATONIN 5 MG TABLETS PO PRN (15:36)
[2019-11-02] MEDS ORDERED: MAGNESIUM HYDROX 2400MG/30ML ORAL SUSPENSION 30 ML CUP PO PRN (15:36)
[2019-11-02] MEDS ORDERED: ONDANSETRON *ODT* 4 MG TABLET SL PRN (15:36)
[2019-11-02] MEDS ORDERED: hydrOXYzine PAMOATE 25 MG CAPSULE (FP) PO PRN (15:36)
[2019-11-02] MEDS ORDERED: P-EPHED 60MG/TRIPROLIDI 2.5MG TABLET PO PRN (15:36)
[2019-11-02] MEDS ORDERED: MAG HYDROX/AL HYDROX/SIMETH 30 ML UNIT-DOSE CUP PO PRN (15:36)
[2019-11-02] MEDS ORDERED: guaiFENesin 200 MG/10 ML 10 ML UNIT-DOSE CUPS PO PRN (15:36)
--- NOTE | 2019-11-02 15:36 | HP ---
COWS - Scale Resting Pulse: 2= NM 101-120 Sweatin= Chills/Flushing Restless Observation: 1= Difficult to Sit Still Pupil Size: 0= Normal to Room Light Bone or Joint Aches: 2= Severe Diffuse Aches Runny Nose/ Eye Tearin= Runny Nose/Eyes GI Upset > 30mins: 1= Stomach Cramp Tremor Observation: 2= Slight Tremor Visible Yawning Observation: 0= None Anxiety or Irritability: 2=Irritable/Anxious Goose Flesh Skin: 3=Piloerection COWS Score: 16 CIWA Score Nausea/Vomitin-No Nausea/No Vomiting Muscle Tremors: 3 Anxiety: 4-Mod. Anxious/Guarded Agitation: 2 Paroxysmal Sweats: No Perspiration Orientation: 0-Oriented Tacttile Disturbances: 2-Mild Itch/Numbness/Burn Auditory Disturbances: 0-None Visual Disturbances: 0-None Headache: 2-Mild CIWA-Ar Total Score: 13 - Admission Criteria [facility] Guidelines: Admission for Medically Managed Detox: Requires at least one of the followin. CIWA greater than 12 2. Seizures within the past 24 hours 3. Delirium tremens within the past 24 hours 4. Hallucinations within the past 24 hours 5. Acute intervention needed for co occurring medical disorder 6. Acute intervention needed for co occurring psychiatric disorder 7. Severe withdrawal that cannot be handled at a lower level of care (continued vomiting, continued diarrhea, abnormal vital signs) requiring intravenous medication and/or fluids 8. Admitting History and Physical - Admission Chief Complaint: HEROIN/BZO WITHDRAWAL SX History Source: Patient Limitations to Obtaining History: No Limitations - Past Medical History ...LMP: 10/08/19 ...: No Psych: Yes: Anxiety, Bipolar, Depression - Past Surgical History Past Surgical History: Yes: - Smoking History Smoking history: Current every day smoker Have you smoked in the past 12 months: Yes Aproximately how many cigarettes per day: 10 - Alcohol/Substance Use Hx Alcohol Use: No - Social History Usual Living Arrangement: Yes: With Parent Do you think of yourself as: Straight/Heterosexual ADL: Independent History of Recent Travel: No Admission ROS BHS - HPI Chief Complaint: HEROIN/BZO WITHDRAWAL SX Allergies/Adverse Reactions: Allergies Allergy/AdvReac Type Severity Reaction Status Date / Time No Known Allergies Allergy Verified 11/02/19 13:15 History of Present Illness: PATIENT IS KNOWN TO [facility] DUE TO PREVIOUS ADMISSIONS, WITH LAST ADMISSION . PATIENT HAS HX OF IVDA WITH HEROIN AND SEDATIVE DEPENDENCE. PATIENT INJECTS 2 BUNDLES OF HEROIN DAILY, LAST USE YESTERDAY 11/01/2019. SHE ALSO SNIFFS 2-4 MG OF XANAX DAILY, WITH LAST USE YESTERDAY. PATIENT HAS HX OF SEIZURES, OVERDOSE IN 2017. LAST ONE 05/2019. SHE DENIES HX OF OVERDOSE AND BLACKOUTS. PMH INCLUDES ANXIETY, DEPRESSION AND BIPOLAR DISORDER. PATIENT DENIES SI/HI. +HX OF CUTTING AND SUICIDE ATTEMPT IN 2017. + THC USE, ONE BLUNT EVERY 2 WEEKS. Exam Limitations: No Limitations - Ebola screening Have you traveled outside of the country in the last 21 days: No (N) Have you had contact with anyone from an Ebola affected area: No Have you been sick,other than usual withdrawal symptoms: No Do you have a fever: No - Review of Systems Constitutional: Chills, Changes in sleep EENT: reports: Tearing, Nose Congestion Respiratory: reports: No Symptoms reported Cardiac: reports: No Symptoms Reported GI: reports: Poor Fluid Intake, Abdominal cramping : reports: No Symptoms Reported Musculoskeletal: reports: Back Pain, Muscle Pain Integumentary: reports: Flushing Neuro: reports: Headache, Numbness, Seizure, Tingling, Tremors Endocrine: reports: No Symptoms Reported Hematology: reports: No Symptoms Reported Psychiatric: reports: Orientated x3, Anxious, Depressed Patient History - Patient Medical History Hx Anemia: No Hx Asthma: No Hx Chronic Obstructive Pulmonary Disease (COPD): No Hx Cancer: No Hx Cardiac Disorders: No Hx Congestive Heart Failure: No Hx Hypertension: No Hx Hypercholesterolemia: No Hx Pacemaker: No HX Cerebrovascular Accident: No Hx Seizures: Yes (2019 from BZO w/drawal) Hx Dementia: No Hx Diabetes: No Hx Gastrointestinal Disorders: No Hx Liver Disease: No Hx Genitourinary Disorders: No Hx Sexually Transmitted Disorders: No Hx Renal Disease (ESRD): No Hx Thyroid Disease: No Hx Human Immunodeficiency Virus (HIV): No (last 11/27) Hx Hepatitis C: No Hx Depression: Yes Hx Suicide Attempt: Yes (OD on Seroquel) Hx Bipolar Disorder: No Hx Schizophrenia: No - Patient Surgical History Past Surgical History: Yes Hx Neurologic Surgery: No Hx Cataract Extraction: No Hx Cardiac Surgery: No Hx Lung Surgery: No Hx Breast Surgery: No Hx Breast Biopsy: No Hx Abdominal Surgery: Yes ( 2016) Hx Appendectomy: No Hx Cholecystectomy: No Hx Genitourinary Surgery: No Hx Section: No Hx Orthopedic Surgery: No Other Surgical History: TONSILLECtoMY DURING CHILDHOOD Anesthesia Reaction: No - PPD History Previous Implant?: Yes Documented Results: Negative w/proof Implanted On Prior [facility] Admission?: No Date: 06/16/15 Results: 0mm PPD to be Administered?: Yes - Reproductive History Last Menstrual Period: 10/08/19 Patient : No - Smoking Cessation Smoking history: Current every day smoker Have you smoked in the past 12 months: No Aproximately how many cigarettes per day: 10 Cigars Per Day: 0 Hx Chewing Tobacco Use: No Initiated information on smoking cessation: Yes 'Breaking Loose' booklet given: 11/02/19 - Substance & Tx. History Hx Alcohol Use: No Hx Substance Use: Yes Substance Use Type: Heroin, Tranquilizers Hx Substance Use Treatment: Yes - Substances abused Heroin Substance route: Injection Frequency: Daily Amount used: 20bags Age of first use: 18 Date of last use: 11/01/19 Alprazolam (Xanax) Substance route: Oral Frequency: Daily Amount used: 4mg Age of first use: 13 Date of last use: 11/01/19 Admission Physical Exam BHS - Vital Signs Vital Signs: Vital Signs - 24 hr 11/02/19 13:20 Temperature 98 F Pulse Rate 103 H Respiratory 16 Rate Blood Pressure 146/81 - Physical General Appearance: Yes: Nourished, Appropriately Dressed, Tremorous, Irritable , Anxious HEENTM: Yes: EOMI, Hearing grossly Normal, Normocephalic, Normal Voice, MARIAN, Pharynx Normal, Nasal Congestion Respiratory: Yes: Chest Non-Tender, Lungs Clear, Normal Breath Sounds, No Respiratory Distress, No Accessory Muscle Use Neck: Yes: No masses,lesions,Nodules, Supple, Trachea in good position Breast: Yes: Breast Exam Deferred Cardiology: Yes: Regular Rhythm, Regular Rate, S1, S2 Abdominal: Yes: Normal Bowel Sounds, Non Tender, Soft Genitourinary: Yes: Within Normal Limits Back: Yes: Muscle Spasm Musculoskeletal: Yes: full range of Motion, Gait Steady, Back pain, Muscle Pain Extremities: Yes: Normal Range of Motion, Tremors Neurological: Yes: refractory specialist II-XII NML intact, Fully Oriented, Alert, Motor Strength 5/5, Normal Response, Numbness, Depressed Affect Integumentary: Yes: Warm, Track Muñiz, Other (FLUSHING (FACIAL) AND GOOSEFLESH) Lymphatic: Yes: Within Normal Limits - Diagnostic (1) Opioid dependence with withdrawal Current Visit: Yes Status: Acute (2) Nicotine dependence Current Visit: Yes Status: Chronic Qualifiers: Nicotine product type: cigarettes Substance use status: in withdrawal Qualified Code(s): F17.213 - Nicotine dependence, cigarettes, with withdrawal (3) Sedative, hypnotic or anxiolytic dependence with withdrawal, uncomplicated Current Visit: Yes Status: Acute (4) Cannabis dependence Current Visit: Yes Status: Chronic (5) Substance induced mood disorder Current Visit: Yes Status: Suspected Cleared for Admission [facility] - Detox or Rehab [facility] Level of Care: Medically Managed Detox Regimen/Protocol: Methadone/Valium Claeared for Rehab Admission: No Breathalyzer - Breathalyzer Breathalyzer: 0 POC Urine test - Test device test lot number: [id number] Expiration date: 06/13/20 - Control test control: Yes - Result Urine Test Results: Negative - NO line present Urine Drug Screen - Test Device Lot number: [id number] Expiration date: 05/13/21 - Control Is test valid?: Yes - Results Drug screen NEGATIVE: No Urine drug screen results: THC-Marijuana, FEN-Fentanyl, MOP-Opiates, BZO- Benzodiazepines Inpatient Rehab Admission - Rehab Decision to Admit Inpatient rehab admission?: No
[2019-11-02] MEDS ORDERED: METHADONE HCL 10 MG TABLET (FOR DETOX USE ONLY) PO ONE (15:39)
[2019-11-02] MEDS: diazePAM 5 MG TABLET PO PRN (16:53)
[2019-11-02] MEDS: NICOTINE POLACRILEX 2 MG GUM BUC PRN (20:00)
[2019-11-02] MEDS: METHOCARBAMOL 500 MG TABLET PO PRN (20:03)
[2019-11-02] MEDS: diazePAM 5 MG TABLET PO SCH (21:03)
[2019-11-02] MEDS: THIAMINE HCL 100 MG TABLET (FP) PO SCH (21:03)
[2019-11-03] MEDS: diazePAM 5 MG TABLET PO SCH ×3 (05:14→22:21)
[2019-11-03] MEDS: NICOTINE POLACRILEX 2 MG GUM BUC PRN ×3 (05:16→22:24)
[2019-11-03] MEDS: diazePAM 5 MG TABLET PO PRN ×2 (07:27→19:48)
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
[2019-11-03] MEDS ORDERED: METHADONE HCL 5 MG TABLET (FOR DETOX USE ONLY) ONE (08:54)
[2019-11-03] MEDS ORDERED: METHADONE HCL 10 MG TABLET (FOR DETOX USE ONLY) ONE (08:54)
[2019-11-03] MEDS: hydrOXYzine PAMOATE 50 MG CAPSULE (FP) PO PRN ×2 (09:10→19:48)
[2019-11-03 09:27] LABS: HEMATOCRIT 37.7 % (32.4-45.2); HEMOGLOBIN 12.5 GM/dL (10.7-15.3); MCH 27.1 pg (25.7-33.7); MCHC 33.1 g/dl (32.0-36.0); MEAN CELL VOLUME 81.9 fl (80-96); MEAN PLT VOLUME 9.3 fl (7.5-11.1); PLATELET COUNT 284 K/MM3 (134-434); RDW 15.1 % (11.6-15.6); WHITE BLOOD COUNT 6.9 K/mm3 (4.0-10.0)
[2019-11-03] MEDS ORDERED: METHADONE (DETOX) 20 MG, METHADONE (DETOX) 5 MG PO ONE (10:00)
--- NOTE | 2019-11-03 10:11 | PN ---
[facility] CIWA - CIWA Score Nausea/Vomitin-No Nausea/No Vomiting Muscle Tremors: 3 Anxiety: 3 Agitation: 3 Paroxysmal Sweats: 3 Orientation: 0-Oriented Tacttile Disturbances: 0-None Auditory Disturbances: 0-None Visual Disturbances: 0-None Headache: 0-None Present CIWA-Ar Total Score: 12 BHS COWS - Scale Resting Pulse: 1= [place] 81-100 Sweatin=Flushed/Facial Moisture Restless Observation: 1= Difficult to Sit Still Pupil Size: 0= Normal to Room Light Bone or Joint Aches: 2= Severe Diffuse Aches Runny Nose/ Eye Tearin= Runny Nose/Eyes GI Upset > 30mins: 0= None Tremor Observation of Outstretched Hands: 2= Slight Tremor Visible Yawning Observation: 0= None Anxiety or Irritability: 2=Irritable/Anxious Goose Flesh Skin: 0=Smooth Skin COWS Score: 12 S Progress Note (SOAP) Subjective: irritable sweats shakes restless body aches interrupted sleep agitation Objective: 11/03/19 10:11 Vital Signs Temperature 97.9 F 11/03/19 09:32 Pulse Rate 82 11/03/19 09:32 Respiratory Rate 18 11/03/19 09:32 Blood Pressure 124/75 11/03/19 09:32 O2 Sat by Pulse Oximetry (%) Laboratory Tests 11/03/19 07:45 WBC 6.9 RBC 4.60 Hgb 12.5 Hct 37.7 MCV 81.9 MCH 27.1 MCHC 33.1 RDW 15.1 Plt Count 284 MPV 9.3 rest of labs pending aaox3 ambulating no acute distress Assessment: 11/03/19 10:11 withdrawals Plan: continue detox increase fluids
[2019-11-03] MEDS: PRENATAL VITAMINS W/ FOLIC ACID TABLET (FP) PO SCH (10:18)
[2019-11-03] MEDS: NICOTINE 14 MG/24 HOURS TOPICAL PATCH TD SCH (10:19)
[2019-11-03 11:03] LABS: ALBUMIN 3.8 g/dl (3.4-5.0); BILIRUBIN,TOTAL 0.3 mg/dL (0.2-1); BLOOD UREA NITROGEN 11.8 mg/dL (7-18); CALCIUM 9.3 mg/dL (8.5-10.1); CREATININE 0.9 mg/dL (0.55-1.3); POTASSIUM 4.1 mmol/L (3.5-5.1); TOT PROT 7.5 g/dl (6.4-8.2)
[2019-11-03] MEDS: THIAMINE HCL 100 MG TABLET (FP) PO SCH (22:21)
[2019-11-03] MEDS: SUVOREXANT 10 MG TABLET PO PRN (22:22)
[2019-11-04] MEDS: diazePAM 5 MG TABLET PO SCH ×2 (06:03→17:02)
[2019-11-04] MEDS: NICOTINE POLACRILEX 2 MG GUM BUC PRN ×3 (06:05→21:25)
[2019-11-04] MEDS ORDERED: cloNIDine HCL 0.1 MG TABLET PO ONE (08:47)
[2019-11-04] MEDS: hydrOXYzine PAMOATE 50 MG CAPSULE (FP) PO PRN (08:49)
[2019-11-04] MEDS ORDERED: BISMUTH SUBSALICYLATE 262 MG/15 ML BTL PO PRN (09:27)
[2019-11-04] MEDS ORDERED: METHADONE HCL 10 MG TABLET (FOR DETOX USE ONLY) PO ONE (10:00)
[2019-11-04] MEDS: PRENATAL VITAMINS W/ FOLIC ACID TABLET (FP) PO SCH (10:16)
[2019-11-04] MEDS: NICOTINE 14 MG/24 HOURS TOPICAL PATCH TD SCH (10:16)
[2019-11-04] MEDS: METHOCARBAMOL 500 MG TABLET PO PRN (10:17)
[2019-11-04] MEDS: diazePAM 5 MG TABLET PO PRN ×4 (10:18→23:42)
--- NOTE | 2019-11-04 10:31 | EKG ---
Test Reason : Blood Pressure : / mmHG Vent. Rate : 089 BPM Atrial Rate : 089 BPM P-R Int : 168 ms QRS Dur : 090 ms QT Int : 356 ms P-R-T Axes : 019 028 020 degrees QTc Int : 433 ms NORMAL SINUS RHYTHM NORMAL ECG WHEN COMPARED WITH ECG OF 12-JAN-2019 16:59, VENT. RATE HAS INCREASED BY 35 BPM INCOMPLETE RIGHT BUNDLE BRANCH BLOCK IS NO LONGER PRESENT Confirmed by MARTIN HILLMAN, GEOVANNA ([id number]) on 11/04/2019 10:31:09 AM Referred By: Confirmed By:GEOVANNA SALAZAR MD
--- NOTE | 2019-11-04 12:06 | PN ---
S CIWA - CIWA Score Nausea/Vomitin Muscle Tremors: 2 Anxiety: 1-Mildly Anxious Agitation: 1-Slight > Activity Paroxysmal Sweats: 2 Orientation: 1-Uncertain about Date Tacttile Disturbances: 1-Very Mild Itch/Numbness Auditory Disturbances: 0-None Visual Disturbances: 0-None Headache: 0-None Present CIWA-Ar Total Score: 11 BHS COWS - Scale Resting Pulse: 0= [place] 80 or Below Sweatin= Chills/Flushing Restless Observation: 1= Difficult to Sit Still Pupil Size: 1= Pupils >than Normal Bone or Joint Aches: 1= Mild Discomfort Runny Nose/ Eye Tearin= Nasal Congestion GI Upset > 30mins: 2= Nausea/Diarrhea Tremor Observation of Outstretched Hands: 1= Tremor [place], Not Seen Yawning Observation: 0= None Anxiety or Irritability: 1=Feels Anxious/Irritable Goose Flesh Skin: 0=Smooth Skin COWS Score: 9 S Progress Note (SOAP) Subjective: interrupted sleep, sweats, diarrhea Objective: 11/04/19 12:08 Vital Signs Temperature 98.1 F 11/04/19 10:00 Pulse Rate 77 11/04/19 10:00 Respiratory Rate 16 11/04/19 10:00 Blood Pressure 113/67 11/04/19 10:00 O2 Sat by Pulse Oximetry (%) Laboratory Tests 11/02/19 11/03/19 11/03/19 13:55 07:45 07:45 WBC 6.9 RBC 4.60 Hgb 12.5 Hct 37.7 MCV 81.9 MCH 27.1 MCHC 33.1 RDW 15.1 Plt Count 284 MPV 9.3 Sodium Potassium Chloride Carbon Dioxide Anion Gap BUN Creatinine Est GFR (CKD-EPI)AfAm Est GFR (CKD-EPI)NonAf Random Glucose Calcium Total Bilirubin AST ALT Alkaline Phosphatase Total Protein Albumin POC Urine HCG, Qual Negative RPR Titer Hep C Ab Diagnostic HIV 1&2 Antibody Screen Negative HIV P24 Antigen Negative 11/03/19 11/03/19 11/03/19 07:45 07:45 07:45 WBC RBC Hgb Hct MCV MCH MCHC RDW Plt Count MPV Sodium 137 Potassium 4.1 Chloride 106 Carbon Dioxide 25 Anion Gap 6 L BUN 11.8 Creatinine 0.9 Est GFR (CKD-EPI)AfAm 103.00 Est GFR (CKD-EPI)NonAf 88.87 Random Glucose 176 H Calcium 9.3 Total Bilirubin 0.3 AST 19 ALT 23 Alkaline Phosphatase 73 Total Protein 7.5 Albumin 3.8 POC Urine HCG, Qual RPR Titer Nonreactive Hep C Ab Diagnostic <0.1 HIV 1&2 Antibody Screen HIV P24 Antigen pt aox3 in nad ambulating Assessment: 11/04/19 12:08 withdrawal sx's hyperglycemia - glucose 176 Plan: cont. detox increase fluids peptobismol prn bgm
[2019-11-04] MEDS: SUVOREXANT 10 MG TABLET PO PRN (21:24)
[2019-11-04] MEDS: THIAMINE HCL 100 MG TABLET (FP) PO SCH (21:24)
[2019-11-05] MEDS ORDERED: diazePAM 5 MG TABLET PO ONE (06:00)
[2019-11-05] MEDS: diazePAM 5 MG TABLET PO PRN ×2 (08:36→12:39)
[2019-11-05] MEDS: METHOCARBAMOL 500 MG TABLET PO PRN ×3 (08:37→22:15)
[2019-11-05] MEDS ORDERED: METHADONE HCL 10 MG TABLET (FOR DETOX USE ONLY) ONE (09:12)
[2019-11-05] MEDS ORDERED: METHADONE HCL 5 MG TABLET (FOR DETOX USE ONLY) ONE (09:12)
[2019-11-05] MEDS ORDERED: METHADONE (DETOX) 10 MG, METHADONE (DETOX) 5 MG PO ONE (10:00)
[2019-11-05] MEDS: NICOTINE 14 MG/24 HOURS TOPICAL PATCH TD SCH (10:47)
[2019-11-05] MEDS: PRENATAL VITAMINS W/ FOLIC ACID TABLET (FP) PO SCH (10:47)
[2019-11-05] MEDS: hydrOXYzine PAMOATE 50 MG CAPSULE (FP) PO PRN ×2 (10:50→18:21)
--- NOTE | 2019-11-05 11:59 | PN ---
BHS COWS - Scale Resting Pulse: 0= [place] 80 or Below Sweatin=Flushed/Facial Moisture Restless Observation: 0= Sits Still Pupil Size: 0= Normal to Room Light Bone or Joint Aches: 0= None Runny Nose/ Eye Tearin= None GI Upset > 30mins: 0= None Tremor Observation of Outstretched Hands: 0= None Yawning Observation: 0= None Anxiety or Irritability: 2=Irritable/Anxious Goose Flesh Skin: 0=Smooth Skin COWS Score: 4 S Progress Note (SOAP) Subjective: Complains of insomnia, Belsomra of no benefit Tearful, misses her 2 yo son Objective: 11/05/19 11:55 Laboratory Last Values WBC 6.9 K/mm3 (4.0-10.0) 11/03/19 07:45 RBC 4.60 M/mm3 (3.60-5.2) 11/03/19 07:45 Hgb 12.5 GM/dL (10.7-15.3) 11/03/19 07:45 Hct 37.7 % (32.4-45.2) 11/03/19 07:45 MCV 81.9 fl (80-96) 11/03/19 07:45 MCH 27.1 pg (25.7-33.7) 11/03/19 07:45 MCHC 33.1 g/dl (32.0-36.0) 11/03/19 07:45 RDW 15.1 % (11.6-15.6) 11/03/19 07:45 Plt Count 284 K/MM3 (134-434) 11/03/19 07:45 MPV 9.3 fl (7.5-11.1) 11/03/19 07:45 Sodium 137 mmol/L (136-145) 11/03/19 07:45 Potassium 4.1 mmol/L (3.5-5.1) 11/03/19 07:45 Chloride 106 mmol/L (98-107) 11/03/19 07:45 Carbon Dioxide 25 mmol/L (21-32) 11/03/19 07:45 Anion Gap 6 MMOL/L (8-16) L 11/03/19 07:45 BUN 11.8 mg/dL (7-18) 11/03/19 07:45 Creatinine 0.9 mg/dL (0.55-1.3) 11/03/19 07:45 Est GFR (CKD-EPI)AfAm 103.00 11/03/19 07:45 Est GFR (CKD-EPI)NonAf 88.87 11/03/19 07:45 Random Glucose 176 mg/dL (74-106) H 11/03/19 07:45 Calcium 9.3 mg/dL (8.5-10.1) 11/03/19 07:45 Total Bilirubin 0.3 mg/dL (0.2-1) 11/03/19 07:45 AST 19 U/L (15-37) 11/03/19 07:45 ALT 23 U/L (13-61) 11/03/19 07:45 Alkaline Phosphatase 73 U/L (45-117) 11/03/19 07:45 Total Protein 7.5 g/dl (6.4-8.2) 11/03/19 07:45 Albumin 3.8 g/dl (3.4-5.0) 11/03/19 07:45 POC Urine HCG, Qual Negative 11/02/19 13:55 RPR Titer Nonreactive (NONREACTIVE) 11/03/19 07:45 Hep C Ab Diagnostic <0.1 s/co ratio (0.0-0.9) 11/03/19 07:45 HIV 1&2 Antibody Screen Negative 11/03/19 07:45 HIV P24 Antigen Negative 11/03/19 07:45 Vital Signs Temperature 97.9 F 11/05/19 11:46 Pulse Rate 71 11/05/19 11:46 Respiratory Rate 18 11/05/19 11:46 Blood Pressure 121/70 11/05/19 11:46 O2 Sat by Pulse Oximetry (%) Gnl: WD, obese, in mild distress, tearful/misses her son Mental status: Awake, alert, normal language Skin: points to right antecubital fossa/site of prior IV heroin use, no evidence of infection/inflammation Ambulating in room and hallway without difficulty Assessment: 11/05/19 11:58 1. Opiate withdrawal 2. Insomnia Plan: 1. continue Methadone protocol 2. stop Belsomra 3. increase melatonin to 10 mg po qhs 4. fasting glucose in am
[2019-11-05 12:31] LABS: PH,URINE 5.5 (5.0-8.0); URINE APPEARANCE CLEAR; URINE BILIRUBIN NEGATIVE (NEGATIVE); URINE COLOR YELLOW; URINE GLUCOSE (UA) NEGATIVE (NEGATIVE); URINE KETONE NEGATIVE (NEGATIVE); URINE LEUK ESTERASE NEGATIVE (NEGATIVE); URINE NITRITE NEGATIVE (NEGATIVE); URINE PROTEIN NEGATIVE (NEGATIVE); URINE UROBILINOGEN 0.2 mg/dL (0.2-1.0)
[2019-11-05] MEDS: NICOTINE POLACRILEX 2 MG GUM BUC PRN ×2 (18:26→22:16)
[2019-11-05] MEDS: MELATONIN 5 MG TABLETS PO PRN (22:14)
[2019-11-05] MEDS: THIAMINE HCL 100 MG TABLET (FP) PO SCH (22:15)
[2019-11-06] MEDS ORDERED: METHADONE HCL 10 MG TABLET (FOR DETOX USE ONLY) PO ONE (10:00)
[2019-11-06] MEDS: NICOTINE 14 MG/24 HOURS TOPICAL PATCH TD SCH (10:09)
[2019-11-06] MEDS: PRENATAL VITAMINS W/ FOLIC ACID TABLET (FP) PO SCH (10:09)
--- NOTE | 2019-11-06 11:34 | PN ---
BHS COWS - Scale Resting Pulse: 0= [place] 80 or Below Sweatin= No chills or Flushing Restless Observation: 0= Sits Still Pupil Size: 1= Pupils >than Normal Bone or Joint Aches: 1= Mild Discomfort Runny Nose/ Eye Tearin= None GI Upset > 30mins: 2= Nausea/Diarrhea Tremor Observation of Outstretched Hands: 0= None Yawning Observation: 1= 1-2x During Session Anxiety or Irritability: 1=Feels Anxious/Irritable Goose Flesh Skin: 3=Piloe[place] COWS Score: 9 BHS Progress Note (SOAP) Subjective: Subjective complaints of anxiety, requesting extra diazepam, worried about taper of methadone. Complains of diarrhea, anxiety, stomach upset Objective: 11/06/19 11:32 Laboratory Last Values WBC 6.9 K/mm3 (4.0-10.0) 11/03/19 07:45 RBC 4.60 M/mm3 (3.60-5.2) 11/03/19 07:45 Hgb 12.5 GM/dL (10.7-15.3) 11/03/19 07:45 Hct 37.7 % (32.4-45.2) 11/03/19 07:45 MCV 81.9 fl (80-96) 11/03/19 07:45 MCH 27.1 pg (25.7-33.7) 11/03/19 07:45 MCHC 33.1 g/dl (32.0-36.0) 11/03/19 07:45 RDW 15.1 % (11.6-15.6) 11/03/19 07:45 Plt Count 284 K/MM3 (134-434) 11/03/19 07:45 MPV 9.3 fl (7.5-11.1) 11/03/19 07:45 Sodium 137 mmol/L (136-145) 11/03/19 07:45 Potassium 4.1 mmol/L (3.5-5.1) 11/03/19 07:45 Chloride 106 mmol/L (98-107) 11/03/19 07:45 Carbon Dioxide 25 mmol/L (21-32) 11/03/19 07:45 Anion Gap 6 MMOL/L (8-16) L 11/03/19 07:45 BUN 11.8 mg/dL (7-18) 11/03/19 07:45 Creatinine 0.9 mg/dL (0.55-1.3) 11/03/19 07:45 Est GFR (CKD-EPI)AfAm 103.00 11/03/19 07:45 Est GFR (CKD-EPI)NonAf 88.87 11/03/19 07:45 Random Glucose 176 mg/dL (74-106) H 11/03/19 07:45 Calcium 9.3 mg/dL (8.5-10.1) 11/03/19 07:45 Total Bilirubin 0.3 mg/dL (0.2-1) 11/03/19 07:45 AST 19 U/L (15-37) 11/03/19 07:45 ALT 23 U/L (13-61) 11/03/19 07:45 Alkaline Phosphatase 73 U/L (45-117) 11/03/19 07:45 Total Protein 7.5 g/dl (6.4-8.2) 11/03/19 07:45 Albumin 3.8 g/dl (3.4-5.0) 11/03/19 07:45 Urine Color Yellow 11/05/19 10:00 Urine Appearance Clear 11/05/19 10:00 Urine pH 5.5 (5.0-8.0) D 11/05/19 10:00 Ur Specific [place] 1.026 (1.010-1.035) 11/05/19 10:00 Urine Protein Negative (NEGATIVE) 11/05/19 10:00 Urine Glucose (UA) Negative (NEGATIVE) 11/05/19 10:00 Urine Ketones Negative (NEGATIVE) 11/05/19 10:00 Urine Blood Negative (NEGATIVE) 11/05/19 10:00 Urine Nitrite Negative (NEGATIVE) 11/05/19 10:00 Urine Bilirubin Negative (NEGATIVE) 11/05/19 10:00 Urine Urobilinogen 0.2 mg/dL (0.2-1.0) 11/05/19 10:00 Ur Leukocyte Esterase Negative (NEGATIVE) 11/05/19 10:00 POC Urine HCG, Qual Negative 11/02/19 13:55 RPR Titer Nonreactive (NONREACTIVE) 11/03/19 07:45 Hep C Ab Diagnostic <0.1 s/co ratio (0.0-0.9) 11/03/19 07:45 HIV 1&2 Antibody Screen Negative 11/03/19 07:45 HIV P24 Antigen Negative 11/03/19 07:45 Vital Signs Temperature 98.1 F 11/06/19 10:01 Pulse Rate 83 11/06/19 10:01 Respiratory Rate 18 11/06/19 10:01 Blood Pressure 143/67 11/06/19 10:01 O2 Sat by Pulse Oximetry (%) Gnl: WD, obese, in mild distress mental status: awake, alert, normal language function, follows complex commands Motor: ambulating in [place], no difficulty Assessment: 11/06/19 11:34 1. Opiod withdrawal Plan: 1. continue opioid withdrawal protocol 2. one time dose Valium 10 mg
[2019-11-06] MEDS: diazePAM 5 MG TABLET PO PRN ×3 (12:13→20:55)
--- NOTE | 2019-11-06 15:05 | PN ---
BHS Progress Note Note: fingerstick glucose before lunch: 96
[2019-11-06] MEDS: MELATONIN 5 MG TABLETS PO PRN (20:56)
[2019-11-06] MEDS: THIAMINE HCL 100 MG TABLET (FP) PO SCH (21:00)
[2019-11-06] MEDS: NICOTINE POLACRILEX 2 MG GUM BUC PRN (21:12)
[2019-11-07] MEDS: diazePAM 5 MG TABLET PO PRN (05:34)
[2019-11-07] MEDS ORDERED: METHADONE HCL 5 MG TABLET (FOR DETOX USE ONLY) PO ONE (06:00)
[2019-11-07 12:26] VITALS: BP 130/68; PULSE 81; TEMP 98.2
--- NOTE | 2019-11-07 17:45 | DS ---
[facility] Detox Discharge Summary Admission Date: 11/02/19 Discharge Date: 11/07/19 - History Present History: Cannabis Dependence, Opioid Dependence, Sedative Dependence Additional Comments: PATIENT GOING TO [facility] ([place], [place]) FOR AFTERCARE. PATIENT WAS DISCHARGED FROM DETOX UNIT IN STABLE MEDICAL CONDITION . Pertinent Past History: History of Seizures, Major Depressive Disorder, Nicotine Dependence, Bipolar II Disorder. - Physical Exam Results Vital Signs: Vital Signs Temperature 98.2 F 11/07/19 10:00 Pulse Rate 81 11/07/19 10:00 Respiratory Rate 17 11/07/19 10:00 Blood Pressure 130/68 11/07/19 10:00 O2 Sat by Pulse Oximetry (%) Pertinent Admission Physical Exam Findings: WITHDRAWAL SYMPTOMS. Laboratory Tests 11/02/19 11/03/19 11/03/19 13:55 07:45 07:45 WBC 6.9 RBC 4.60 Hgb 12.5 Hct 37.7 MCV 81.9 MCH 27.1 MCHC 33.1 RDW 15.1 Plt Count 284 MPV 9.3 Sodium Potassium Chloride Carbon Dioxide Anion Gap BUN Creatinine Est GFR (CKD-EPI)AfAm Est GFR (CKD-EPI)NonAf POC Glucometer Random Glucose Calcium Total Bilirubin AST ALT Alkaline Phosphatase Total Protein Albumin Urine Color Urine Appearance Urine pH Ur Specific [place] Urine Protein Urine Glucose (UA) Urine Ketones Urine Blood Urine Nitrite Urine Bilirubin Urine Urobilinogen Ur Leukocyte Esterase POC Urine HCG, Qual Negative RPR Titer Hep C Ab Diagnostic HIV 1&2 Antibody Screen Negative HIV P24 Antigen Negative 11/03/19 11/03/19 11/03/19 07:45 07:45 07:45 WBC RBC Hgb Hct MCV MCH MCHC RDW Plt Count MPV Sodium 137 Potassium 4.1 Chloride 106 Carbon Dioxide 25 Anion Gap 6 L BUN 11.8 Creatinine 0.9 Est GFR (CKD-EPI)AfAm 103.00 Est GFR (CKD-EPI)NonAf 88.87 POC Glucometer Random Glucose 176 H Calcium 9.3 Total Bilirubin 0.3 AST 19 ALT 23 Alkaline Phosphatase 73 Total Protein 7.5 Albumin 3.8 Urine Color Urine Appearance Urine pH Ur Specific [place] Urine Protein Urine Glucose (UA) Urine Ketones Urine Blood Urine Nitrite Urine Bilirubin Urine Urobilinogen Ur Leukocyte Esterase POC Urine HCG, Qual RPR Titer Nonreactive Hep C Ab Diagnostic <0.1 HIV 1&2 Antibody Screen HIV P24 Antigen 11/05/19 11/06/19 11/07/19 10:00 11:36 06:15 WBC RBC Hgb Hct MCV MCH MCHC RDW Plt Count MPV Sodium Potassium Chloride Carbon Dioxide Anion Gap BUN Creatinine Est GFR (CKD-EPI)AfAm Est GFR (CKD-EPI)NonAf POC Glucometer 96 102 Random Glucose Calcium Total Bilirubin AST ALT Alkaline Phosphatase Total Protein Albumin Urine Color Yellow Urine Appearance Clear Urine pH 5.5 D Ur Specific [place] 1.026 Urine Protein Negative Urine Glucose (UA) Negative Urine Ketones Negative Urine Blood Negative Urine Nitrite Negative Urine Bilirubin Negative Urine Urobilinogen 0.2 Ur Leukocyte Esterase Negative POC Urine HCG, Qual RPR Titer Hep C Ab Diagnostic HIV 1&2 Antibody Screen HIV P24 Antigen LABS NOTED. - Treatment Hospital Course: Detox Protocol Followed, Detoxed Safely, Responded well, Discharged Condition Good, Rehab Referral Accepted Patient has Accepted a Rehab Referral to: [facility] ( [place], [place]) - Medication Discharge Medications: Ambulatory Orders NK [No Known Home Medication] 11/02/19 - Diagnosis (1) Cannabis dependence Status: Acute (2) Opioid dependence with withdrawal Status: Acute (3) Sedative, hypnotic or anxiolytic dependence with withdrawal, uncomplicated Status: Acute (4) Substance induced mood disorder Status: Acute (5) Substance-induced sleep disorder Status: Acute (6) MDD (major depressive disorder), recurrent episode Status: Chronic Qualifiers: Major depression episode severity: unspecified Qualified Code(s): F33.9 - Major depressive disorder, recurrent, unspecified (7) Nicotine dependence Status: Chronic Qualifiers: Nicotine product type: cigarettes Substance use status: in withdrawal Qualified Code(s): F17.213 - Nicotine dependence, cigarettes, with withdrawal (8) Bipolar II disorder Status: Ruled-out - AMA Did Patient Leave Against Medical Advice: No
== END 2019-11-07 09:42 | disposition home or self-care (01) | DRG 773 ==
LOC: YASAS 12:53 → Y6N 15:25
PROVIDERS: ADMIT Allergy & Immunology; ATTEND Allergy & Immunology
PROC: HZ2ZZZZ Detoxification Services for Substance Abuse Treatment (ICD-10-PCS; principal; 2019-11-02)
DX: F11.23 Opioid dependence with withdrawal (principal); F13.230 Sedative, hypnotic or anxiolytic dependence with withdrawal, uncomplicated; F12.20 Cannabis dependence, uncomplicated; F17.210 Nicotine dependence, cigarettes, uncomplicated; F19.282 Other psychoactive substance dependence with psychoactive substance-induced sleep disorder; F19.24 Other psychoactive substance dependence with psychoactive substance-induced mood disorder; F31.81 Bipolar II disorder; G47.00 Insomnia, unspecified; Z86.69 Personal history of other diseases of the nervous system and sense organs; Z91.5 Personal history of self-harm
CPT/HCPCS: 36415; 80053; 81003; 81025; 82962; 85027; 86593; 86803; 87389; 93005; 93010; J0735